=== PATIENT | female | born 1970 | race Caucasian/White ===

== ENCOUNTER 2016-11-18 09:33 | Inpatient (IN) | payer OTHER ==
[~2016-11-18] VITALS: Ht 166.4 cm; Wt 52.2 kg
--- NOTE | 2016-11-18 09:43 | NUR ---
PT WITH HX OF MS C/O H/A X 1 MONTH. STATES SHE HAS BEEN BEDRIDDEN WITH IT X 1 WEEK. PT ALSO STATES SHE STARTED WITH VERTIGO AT 0400 TODAY. PT STATES SHE JUST FINISHED 3 DAYS OF SOLUMEDROL AND IT ALWAYS MAKES HER NAUSEOUS. STATES SHE HAS EYE ISSUES THAT MAKE HER DIZZY TOO
--- NOTE | 2016-11-18 10:06 | NUR ---
RESIDENT AT BEDSIDE FOR EVAL
--- NOTE | 2016-11-18 10:27 | NUR ---
LABS DRAWN AND SENT. PT MEDICAED WITH MECLIZINE PER eMAR.
[2016-11-18 10:37] LABS: ABSOLUTE BASOPHIL COUNT 0 /CUMM (0.0-0.2); ABSOLUTE EOSINOPHIL COUNT 0.1 /CUMM (0.0-0.7); ABSOLUTE GRANULOCYTE CT 7.9 /CUMM (1.4-6.5); ABSOLUTE LYMPH COUNT 0.5 /CUMM (1.2-3.4); ABSOLUTE MONOCYTE COUNT 0.6 /CUMM (0.10-0.60); BASOPHIL % 0.2 % (0.0-2.0); EOSINOPHIL % 0.8 % (0-5); HEMATOCRIT 37.4 % (37-47); MEAN CORPUSCULAR HGB 31.1 PG (27.0-31.0); MEAN CORPUSCULAR HGB CONC 34.4 G/DL (33.0-37.0); MEAN CORPUSCULAR VOLUME 90.4 FL (81.0-99.0); MEAN PLATELET VOLUME 7.6 FL (7.4-10.4); PLATELET COUNT 426 /CUMM (130-400); RBC DISTRIBUTION WIDTH 13.4 % (11.5-14.5); RED BLOOD CELL CT 4.14 /CUMM (4.20-5.40)
--- NOTE | 2016-11-18 10:57 | NUR ---
PT MEDICATED PER EMAR AT THIS TIME.
--- NOTE | 2016-11-18 10:58 | ED AMS/SEIZURE/WEAK/DIZZY ---
History of Present Illness General Chief Complaint: Headache Stated Complaint: DIZZINESS, HEADACHE, X 1WEEK Vital Signs & Intake/Output Vital Signs & Intake/Output Vital Signs Date Time Temp Pulse Resp B/P Pulse O2 O2 Flow FiO2 Ox Delivery Rate 11/18 1331 98.2 57 18 101/60 100 Room Air 11/18 1144 55 18 108/58 100 Room Air 11/18 0942 97.9 62 20 113/79 97 Room Air Allergies Coded Allergies: acetaminophen (From Percocet) (Intermediate, FACIAL SWELLING 11/18/16) oxycodone (From Percocet) (Intermediate, FACIAL SWELLING 11/18/16) prochlorperazine (From Compazine) (Intermediate, LEFT FACIAL/NECK MUSCLES CONTRACTED 11/18/16) dexamethasone (Intermediate, NAUSEA 11/18/16) Triage Note: PT WITH HX OF MS C/O H/A X 1 MONTH. STATES SHE HAS BEEN BEDRIDDEN WITH IT X 1 WEEK. PT ALSO STATES SHE STARTED WITH VERTIGO AT 0400 TODAY. PT STATES SHE JUST FINISHED 3 DAYS OF SOLUMEDROL AND IT ALWAYS MAKES HER NAUSEOUS. STATES SHE HAS EYE ISSUES THAT MAKE HER DIZZY TOO : No Patient currently breastfeeds: No HPI: Pt is a 45 yo lady with a past medical history of Relapsing Remitting MS on fingolimod thera[y, and migraine headaches, presents with complaints of headaches, and vertigo. Pt reports that she has been feeling "sick" since 1 week ago with frontal headaches, and weakness. Associated symptoms include nasuea ( but no vomiting), and dysuria that started today. Pt and was treated with 3 day outpatient course of Solumedrol (11/13-11/15) for exercarbation of her MS. She reports that the Solumedrol did not seem to help her and she continued having frontal headaches. Pt decided to come in to the ED today because at 4am she started experiencing intense vertigo. She states that she has had vertigo before bit not this intense, vertigo is not affected by positional changes. She denies any tinnitus, vision changes or any neurological deficits, speech impairment,LOC , seizure activities, chest pain or palpitation. (EUSEBIO XAVIER,ANKITA) General Source: patient, family, old records Exam Limitations: no limitations Reconcile Medications Butalb/Acetaminophen/Caffeine (Jeedoi-Mfhkfqhw-Cbme 50-325-40) 50 MG-325 MG-40 MG TABLET MIGRAINE (Reported) Triage Nurses Notes Reviewed? yes (VERONIQUE NIXON MD) Past History Travel History Traveled to [place] past 21 day No Medical History Neurological: multiple sclerosis Psychosocial History What is your primary language Scottish Tobacco Use: Never used ETOH Use: occasional use Illicit Drug Use: denies illicit drug use (ANKITA KAPLAN MD) Medical History Any Pertinent Medical History? see below for history Surgical History Surgical History: non-contributory Family History Hx Contributory? No (VERONIQUE NIXON MD) Review of Systems Review of Systems Constitutional: Reports: see HPI. (ANKITA KAPLAN MD) Review of Systems EENTM: Reports: no symptoms. Respiratory: Reports: no symptoms. Cardiovascular: Reports: no symptoms. GI: Reports: no symptoms. Genitourinary: Reports: no symptoms. Musculoskeletal: Reports: no symptoms. Skin: Reports: no symptoms. Neurological/Psychological: Reports: see HPI, headache. Hematologic/Endocrine: Reports: no symptoms. Immunologic/Allergic: Reports: no symptoms. All Other Systems: Reviewed and Negative (VERONIQUE NIXON MD) Physical Exam Physical Exam General Appearance: alert, awake, mild distress Head: atraumatic, normal appearance Eyes: Bilateral: normal appearance (no nystagmus noted), PERRL, EOMI. 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 Skin: intact, normal color Lymphatic: adenopathy Core Measures ACS in differential dx? No CVA/TIA Diagnosis: No Severe Sepsis Present: No Septic Shock Present: No (ANKITA KAPLAN MD) Progress Differential Diagnosis: benign positional vertigo, dehydration, electrolyte imbalance, labrynthitis, Meniere's disease, migraine RUSSELL, multiple sclerosis, vertebrobasilar insuff Plan of Care: Orders Procedure Date/time Status Regular Diet 11/19 D Active MRI-HEAD W & W/O MICHEL 11/19 0600 Active Regular Diet 11/18 D Active Pathway - chart 11/18 1431 Active House Staff 11/18 1431 Active Patient Data 11/18 1431 Active Code Status 11/18 1431 Active Patient Data 11/18 1323 Active OXYGEN SETUP (GEN) 11/18 1309 Active Saline Lock 11/18 1309 Active Admit to inpatient 11/18 1309 Active Vital Signs 11/18 1309 Active Activity/Ambulation 11/18 1309 Active Code Status 11/18 1309 Complete Intake & Output 11/18 1058 Active URINALYSIS 11/18 1015 Complete COMPREHENSIVE METABOLIC PANEL 11/18 1015 Complete CBC WITHOUT DIFFERENTIAL 11/18 1015 Complete VTE Mechanical Prophylaxis 11/18 UNK Active Current Medications Sig/Kasandra Start time Last Medication Dose Stop Time Status Admin Meclizine HCl 25 MG TID PRN 11/18 1445 AC (Antivert) Methylprednisolone 1,000 MG DAILY 11/18 1445 AC (Solu Medrol) 11/19 1200 Dextrose/Water 1,000 ML (D5W 1000) Ondansetron HCl 4 MG TID PRN 11/18 1445 AC (Zofran) Acetaminophen 650 MG Q6P PRN 11/18 1430 UNVr (Tylenol) Ibuprofen 600 MG Q6P PRN 11/18 1430 AC (Motrin) Ketorolac 60 MG ONCE ONE 11/18 1045 CAN Tromethamine 11/18 1046 (Toradol) Laboratory Tests 11/18/16 1055: Urinalysis MANY H, Urine Color YEL, Urine Clarity CLDY H, Urine pH 8.0, Ur Specific [place] 1.015, Urine Protein NEG, Urine Ketones NEG, Urine Nitrite NEG, Urine Bilirubin NEG, Urine Urobilinogen 0.2, Ur Leukocyte Esterase NEG, Ur Microscopic SEDIMENT EXAMINED, Urine RBC RARE, Urine WBC RARE, Ur Epithelial Cells FEW, Urine Hemoglobin NEG, Urine Glucose NEG 11/18/16 1024: Anion Gap 8, Estimated GFR > 60, BUN/Creatinine Ratio 13.8, Glucose 97, Calcium 9.3, Total Bilirubin 0.7, AST 13 L, ALT 29, Alkaline Phosphatase 54, Total Protein 6.5, Albumin 4.1, Globulin 2.4, Albumin/Globulin Ratio 1.7, CBC w Diff NO MAN DIFF REQ, RBC 4.14 L, MCV 90.4, MCH 31.1 H, RDW 13.4, MPV 7.6, Gran % 87.4 H, Lymphocytes % 5.3 L, Monocytes % 6.3, Eosinophils % 0.8, Basophils % 0.2, Absolute Granulocytes 7.9 H, Absolute Lymphocytes 0.5 L, Absolute Monocytes 0.6, Absolute Eosinophils 0.1, Absolute Basophils 0, PUBS MCHC 34.4 Initial ED EKG: none (EUSEBIO XAVIER,ANKITA) Departure Departure Condition: Stable Referrals: CLIFTON SABA MD (PCP/Family) Departure Forms: Customer Survey General Discharge Information (ANKITA KAPLAN MD) Departure Time of Disposition: 1300 Disposition: STILL A PATIENT Clinical Impression Primary Impression: Multiple sclerosis Secondary Impressions: Vertigo Admission Note Spoke With: WESLEY BOX MD Documentation of Exam: Documentation of any treatments & extenuating circumstances including Concerns Regarding Discharge (functional status, medication knowledge or non-compliance, living conditions, etc.) that warrant an admission rather than observation: Failed outpatient high-dose steroid treatment for MS with intractable vertigo headache requiring urology evaluation medication adjustment ensure safety continuing care discharge planning Resident Co-Sign Statement Statement: ED Attending supervision documentation- x I saw and evaluated the patient. I have also reviewed all the pertinent lab results and diagnostic results. I agree with the findings and the plan of care as documented in the Resident's documentation. [] I have reviewed the ED Record and agree with the Resident's documentation. [] Additions or exceptions (if any) to the Resident's note and plan are summarized below: [] (VERONIQUE NIXON MD)
[2016-11-18 11:00] LABS: GRANULOCYTE % 87.4 % (42.2-75.2)
--- NOTE | 2016-11-18 12:00 | NUR ---
PT LAYING QUIETLY ON STRETCHER, LIGHTS DIMMED FOR COMFORT
--- NOTE | 2016-11-18 13:29 | NUR ---
PT MEDICATED WITH 1 MG ATIVAN IV
--- NOTE | 2016-11-18 14:33 | History & Physical ---
FABIO ONTIVEROS 11/18/16 1433: General Information and HPI MD Statement: I have seen and personally examined COY COTTO and documented this H&P. The patient is a 45 year old F who presented with a patient stated chief complaint of []. Source of Information: patient Exam Limitations: no limitations History of Present Illness: This 45-year-old female with history of relapsing remitting MS diagnosed in 1990 on fingolimod and history of migraine headaches came with chief complaint of fatigue, lethargic, headache from couple of days and complaining of severe vertigo for one day. Patient admits that she started having these symptoms and was prescribed high-dose steroids Solu-Medrol 1000 [address] daily [address] Marino for 3 days and last dose was on Thursday. After steroids she became more nauseous fatigued and her vertigo became more pronounced. She also experienced left-sided headache and worse not able to ambulate to severe vertigo and eat anything cause of nausea for last week. She denied chest pain, palpitations, shortness of breath, any urinary or bowel complaints. Her routine pain medications were not helping for her frontal headache and currently she is complaining 6-8 out of 10 headache which is mostly frontal and especially on right side. She is also complaining of double vision very often. Her vertigo is more pronounced when she turns to worse right. She denied any photophobia or neck stiffness. Her balance was off lately but she denied any recent fall. Vital signs at admission temperature 97.9, pulse 62, respiratory rate 20, blood pressure 113/79, oxygen saturation 97 on room air Labs shows WBC count 9.0, hemoglobin 12.9, hematocrit 37.9, platelet 426, sodium 133, potassium 3.8, chloride 98, vision 11 and creatinine 0.8. Allergies/Medications Allergies: Coded Allergies: acetaminophen (From Percocet) (Intermediate, FACIAL SWELLING 11/18/16) oxycodone (From Percocet) (Intermediate, FACIAL SWELLING 11/18/16) prochlorperazine (From Compazine) (Intermediate, LEFT FACIAL/NECK MUSCLES CONTRACTED 11/18/16) dexamethasone (Intermediate, NAUSEA 11/18/16) Home Med list Butalb/Acetaminophen/Caffeine (Lnoyvl-Fjdbplqn-Mgiz 50-325-40) 50 MG-325 MG-40 MG TABLET MIGRAINE (Reported) Carbamazepine 100 MG TAB.CHEW 100 MG PO BED EYE PAIN (Reported) Dextroamphetamine/Amphetamine (Dextroamp-Amphetamin 10 MG Tab) 10 MG TABLET 10 MG PO DAILY ms (Reported) Doxazosin Mesylate (Cardura) 4 MG TABLET 4 MG PO DAILY PRN ms (Reported) Fingolimod HCl (Gilenya) 0.5 MG CAPSULE 0.5 MG PO DAILY MS (Reported) Lorazepam (Ativan) 0.5 MG TABLET 0.5 MG PO DAILY ANXIETY (Reported) Memantine HCl (Namenda) 10 MG TABLET 10 MG PO BID MS (Reported) Ondansetron HCl 4 MG TABLET 4 MG PO BID PRN NAUSEA (Reported) Propranolol HCl 60 MG TABLET 60 MG PO DAILY HEADACHE (Reported) Topiramate 25 MG TABLET 25 MG PO TID HEADACHE (Reported) Zolpidem Tartrate 10 MG TABLET 10 MG PO BED INSOMNIA (Reported) Compliance With Home Meds: FAIR Past History Travel History Traveled to [place] past 21 day No Medical History Neurological: multiple sclerosis Surgical History Surgical History: non-contributory Past Family/Social History Family History Relations & Conditions if any FATHER (Hypertension and renal cancer). MOTHER MOTHER (Hypertension and breast cancer). Psychosocial History ETOH Use: occasional use Illicit Drug Use: denies illicit drug use Functional Ability ADLs Independent: dressing, eating, toileting, bathing. Ambulation: independent IADLs Independent: shopping, housework, finances, food prep, telephone, transportation , medication admin. Review of Systems Review of Systems Constitutional: Reports: malaise, weakness. Denies: chills. EENTM: Reports: double vision. Cardiovascular: Denies: chest pain, edema. Respiratory: Denies: cough, hemoptysis. GI: Reports: nausea. Genitourinary: Reports: discharge. Denies: dysuria. Musculoskeletal: Reports: muscle pain. Exam & Diagnostic Data Last 24 Hrs of Vital Signs/I&O Vital Signs Date Time Temp Pulse Resp B/P Pulse O2 O2 Flow FiO2 Ox Delivery Rate 11/18 1331 98.2 57 18 101/60 100 Room Air 11/18 1144 55 18 108/58 100 Room Air 11/18 0942 97.9 62 20 113/79 97 Room Air Intake & Output 11/18 1600 11/18 0800 11/18 0000 Intake Total Output Total 100 Balance -100 Output, Urine 100 Patient 115 lb Weight Physical Exam General Appearance Alert, Oriented X3, Cooperative, Mild Distress Skin No Rashes HEENT Atraumatic, Mucous Membr. moist/pink Neck Supple Cardiovascular Regular Rate, Normal S1, Normal S2 Lungs Normal Air Movement Abdomen Soft Neurological Normal Speech, Strength at 5/5 X4 Ext, Normal Tone, Sensation Intact, Cranial Nerves 3-12 NL Extremities No Clubbing, No Cyanosis, No Edema Last 24 Hrs of Labs/Darrin: Laboratory Tests 11/18/16 1055: Urinalysis MANY H, Urine Color YEL, Urine Clarity CLDY H, Urine pH 8.0, Ur Specific [place] 1.015, Urine Protein NEG, Urine Ketones NEG, Urine Nitrite NEG, Urine Bilirubin NEG, Urine Urobilinogen 0.2, Ur Leukocyte Esterase NEG, Ur Microscopic SEDIMENT EXAMINED, Urine RBC RARE, Urine WBC RARE, Ur Epithelial Cells FEW, Urine Hemoglobin NEG, Urine Glucose NEG 11/18/16 1024: Anion Gap 8, Estimated GFR > 60, BUN/Creatinine Ratio 13.8, Glucose 97, Calcium 9.3, Total Bilirubin 0.7, AST 13 L, ALT 29, Alkaline Phosphatase 54, Total Protein 6.5, Albumin 4.1, Globulin 2.4, Albumin/Globulin Ratio 1.7, CBC w Diff NO MAN DIFF REQ, RBC 4.14 L, MCV 90.4, MCH 31.1 H, RDW 13.4, MPV 7.6, Gran % 87.4 H, Lymphocytes % 5.3 L, Monocytes % 6.3, Eosinophils % 0.8, Basophils % 0.2, Absolute Granulocytes 7.9 H, Absolute Lymphocytes 0.5 L, Absolute Monocytes 0.6, Absolute Eosinophils 0.1, Absolute Basophils 0, PUBS MCHC 34.4 Assessment/Plan Assessment: Patient is 45-year-old female with history of relapsing remitting MS came with severe vertigo and headache and lethargy most likely due to MS exacerbation but we will rule out other causes including benign positional vertigo and migraine exacerbation. We'll admit patient on general medical floor and will take it for the following problems Problem #1 severe vertigo and headache most likely due to MS exacerbation with underlying migraine headaches. Rule out benign positional vertigo -Vital signs every shift -I spoke with Dr. Rich and he recommended to start patient on high-dose Solu-Medrol 1000 mg IV for now and he will give further recommendations on assessing patient. -We could give Ativan when necessary for anxiety and pain -IV morphine for severe pain -Continue her home medications including single remote, topiramate, amphetamine, propranolol, zolpidem, modafinil. -Pharmacological DVT prophylaxis -Zofran for nausea and vomiting -We will pursue with MRI of the brain and also MRA to rule out any significant vascular stenosisor new MS lesions tomorrow as we don't have any facility for MRI at this moment and already discussed with neurologist. Regular diet as tolerated DVT prophylaxis pharmacological Patient is full code As Ranked By This Provider Problem List: 1. Vertigo 2. Multiple sclerosis Core Measures/Miscellaneous Acute Coronary Syndrome ACS Diagnosis: No Cerebrovascular Accident CVA/TIA Diagnosis: No Congestive Heart Failure CHF Diagnosis: No Venous Thromboembolism VTE Risk Factors: Age > 40 VTE Prophylaxis Ordered Inpt: Pharm- Lovenox No Mech VTE prophylaxis d/t: No contraindications No VTE Pharm Prophylaxis d/t: No contraindications VTE Diagnosis: No VTE Type: NONE VTE Confirmed by (Test): NONE Severe Sepsis Severe Sepsis Present: No Septic Shock Septic Shock Present: No Miscellaneous Documentation Attending Case Discussed With: LINDSEY JONES M.D Primary Care Physician: CLIFTON SABA MD Patient sees these Specialists Neurologist Level of Patient Care: General Medicine LINDSEY JONES MD 11/18/16 1705: Attending MD Review Statement Attending Statement Attending Statement: examined this patient, discuss w/resident/PA/WORKFORCE MANAGER, agreed w/resident/PA/WORKFORCE MANAGER, discussed with family, reviewed EMR data (avail), discussed with nursing, amended to note Attending Assessment/Plan: Patient seen and examined. 45-year-old female with history of relapsing remitting multiple sclerosis and migraine. Presents to the emergency room with complaints of headaches and vertigo has been going on since the weekend. She had initially contacted her neurologist last week with complaints of fatigue and headaches. Symptoms were attributed to a flare of her multiple sclerosis and he made arrangements for intravenous Solu-Medrol injections at home for 3 days. She reports no improvement with therapy. She reports developing nausea which she states happens routinely whenever she received steroid therapy. Her headaches persisted and she developed vertigo at which point she came to the emergency room for evaluation. She denies tinnitus. She reports mild relief of her headaches when she closes her eyes symptoms aggravated by motion of her head. She denies similar symptoms in the past. She reports her migraine has been an issue for a while and she has tried different regimens from her neurologist. On examination today she is alert and oriented 3. She is hemodynamically stable. She has no focal deficits on examination. Power is 5 over 5 in all extremities. She has no nystagmus and cranial nerves are intact. Problems: 1. Migraine. 2. Intractable nausea; probably medication induced 3. History of multiple sclerosis; she has no focal weakness at present. Recommendations: -Admit to the inpatient general medical service. -We will obtain an MRI and MRA of the brain for further workup of her vertigo. Recommend checking orthostatic vitals as well as physical therapy evaluation for Suze's maneuver. Begin patient on meclizine. Administer [id number] and not when necessary -Antiemetic therapy with Zofran. -Recommend Toradol IV for management of her headaches. Continue Topiramate. -Case was discussed with her neurologist who is currently recommending high-dose steroid therapy. Will follow-up with him regarding duration of therapy.
[2016-11-18] MEDS ORDERED: BUTALB-ACETAMI1 EACH PO (14:52)
[2016-11-18] MEDS ORDERED: ONDANSETRON HCL4 MG PO (14:53)
[2016-11-18] MEDS ORDERED: NAMENDA10 M2 PO (14:55)
[2016-11-18] MEDS ORDERED: ZOLPIDEM TARTRA10 M1 PO (14:56)
[2016-11-18] MEDS ORDERED: CARBAMAZEPINE100 M2 PO (14:58)
[2016-11-18] MEDS ORDERED: DEXTROAMP-AMPHE10 MG PO (14:58)
[2016-11-18] MEDS ORDERED: PROPRANOLOL HCL60 M3 PO (15:01)
[2016-11-18] MEDS ORDERED: TOPIRAMATE25 M2 PO (15:02)
[2016-11-18] MEDS ORDERED: GILENYA0.5 M1 PO (15:03)
[2016-11-18] MEDS ORDERED: CARDURA4 M1 PO (15:04)
[2016-11-18] MEDS ORDERED: ATIVAN0.5 M1 PO (15:05)
--- NOTE | 2016-11-18 15:21 | NUR ---
PT MEDICATED DOCUMENTED IN EMAR. OF PT REMAINS AT BEDSIDE
--- NOTE | 2016-11-18 15:26 | NUR ---
ASSUMED CARE OF PT. PT ASKING FOR NAUSEA MEDICATION PRIOR TO STARTING SOLUMEDROL GTT. PT ASKING FOR SOMETHING DIFFERENT THEN ZOFRAN STATES ZOFRAN DOESNT HELP NAUSEA
--- NOTE | 2016-11-18 15:32 | NUR ---
PAGED DR BONILLA AND ASKED FOR NAUSEA MEDICATION FOR PATIENT
--- NOTE | 2016-11-18 16:11 | NUR ---
PT ASSISTED BY USING WHEELCHAIR TO GET UP TO BATHROOM. BACK IN BED, LAYING ON LEFT SIDE, TRYING TO SLEEP. STATES SHE STILL HAS VERTIGO, HEAD ACHE 5 OUT OF 10 PERSISTS AND IS VERY TIRED.
--- NOTE | 2016-11-18 16:42 | NUR ---
PT ASKING FOR SOUP. VITALS TAKEN
--- NOTE | 2016-11-18 17:05 | Admission Certification ---
Admission Certification Certification Statement - As attending physician, I certify that at the time of - admission, based on clinical presentation, severity of - symptoms, need for further diagnostic testing and - therapeutic interventions, and risk of adverse outcomes - without in-hospital treatment, in my clinical assessment, - this patient requires an acute hospital stay for a minimum - of two nights or longer. I have also considered psychsocial - factors such as support system, advanced age, financial - issues, cognitive issues, and failed out-patient treatments, - past re-admission history, safety of patient, and lack of - compliance as applicable. Specific rationale supporting this admission is: She is being admitted to the inpatient medical service for further workup of her vertigo. She is also receiving intravenous steroid therapy for possible flareup of her multiple sclerosis.
--- NOTE | 2016-11-18 17:30 | NUR ---
PT DRANK A BOWL OF BROTH FOR DINNER
--- NOTE | 2016-11-18 18:19 | NUR ---
PT COMPLAINING OF A STABBING TYPE PAIN IN RIGHT UPPER ARM EXTENDING TO ELBOW. STATES THE PAIN IS A 7 OUT OF 10 AND BEGAN SHORTLY AFTER GETTING INJECTION OF TIGAN. DENIES NUMBNESS OR TINGLING IN HAND OR FOREARM. PALPABLE RADIAL PULSE ON RIGHT WRIST. PT PUT ICE PACK ON FOR COMFORT AND DID NOT SAY ANYTHING TO STAFF UNTIL ICE PACKS RAN OUT IN ROOM
--- NOTE | 2016-11-18 20:53 | NUR ---
ORTHOSTATIC BLOOD PRESSURES DONE ON PATIENT. PT CONTINUES WITH LOW GRADE TEMP. GIVEN TYLENOL. PT RESTING QUIETLY. STILL COMPLAINING OF VERTIGO AND HEAD ACHE. STILL COMPLAINING OF RUE DISCOMFORT. ICE PACK CONTINUES TO RUE. PT STATES SHE WAS RECENTLY UP TO RESTROOM. EXPLAINED TO PT PLAN TO MOVE TO A HOSPITAL BED FOR HER COMFORT WHILE STILL IN THE EMERGENCY DEPARTMENT
--- NOTE | 2016-11-18 21:44 | NUR ---
DR VACA NOTIFIED OF PT COMPLAINTS OF STABBING LIKE PAIN IN RUE AFTER GETTING INJECTION. RUE WITHOUT ANY REDNESS OR SWELLING.
--- NOTE | 2016-11-18 22:26 | NUR ---
PT MOVED TO ROOM 21. THIS NURSE CONTINUES TO CARE FOR PT. PT AMBULATING IN ROOM ON HER OWN. ASSISTED TO BATHROOM. NOW BACK IN BED. PT PLACED IN HOSPITAL BED FOR COMFORT
--- NOTE | 2016-11-18 23:14 | NUR ---
PT REFUSED TOPAMAX, STATES IT KEEPS HER AWAKE, REFUSED RITALIN, STATES SHE TAKES IT IN THE AM. ASKED FOR AND GIVEN AMBIEN FOR SLEEP
--- NOTE | 2016-11-19 07:29 | NUR ---
ASSUMED CARE OF PT WHO IS A&O X3, PT OOB TO BR WITHOUT ASSIST. STEADY GAIT NOTED. PT GIVEN BREAKFAST TRAY. PT STATES SLIGHT H/A TO RIGHT SIDE OF FOREHEAD BUT STATES HER DIZZINESS IS BETTER. WAITING FOR ADMISSION BED. WILL CTM
--- NOTE | 2016-11-19 07:34 | PN- Housestaff ---
Subjective Follow-up For: MS Exacerbation Fatigue Nausea Subjective: Patient seen and examined. She is seen lying flat in bed appearing uncomfortable. She appears to be in no acute distress. At her bedside is her who is up-to-date about her medical condition and has no questions at this time. She reports persistence of her headache with mild nausea "since September" for which she is been given multiple medications with minimal relief. Her headache is described as frontal with focus behind her right eye without radiation. She feels tired, fatigued, lethargic and tremulous, with the latter being attributed to the steroids she received from her recent steroid infusion. She denies any new obvious neurological deficits. Additionally she denies any blurred/double vision, slurred speech, fever, chills , neck stiffness, chest pain, palpitations, shortness of breath, cough, nausea, vomiting, diarrhea. No overnight events reported. Review of Systems Constitutional: Reports: see HPI. Objective Last 24 Hrs of Vital Signs/I&O Vital Signs Date Time Temp Pulse Resp B/P Pulse O2 O2 Flow FiO2 Ox Delivery Rate 11/19 1519 97.9 60 18 90/58 96 11/19 1123 98.1 71 16 82/40 99 Room Air 11/19 0613 98.6 65 18 97/57 97 Room Air 11/18 2314 98.9 59 16 92/50 96 Room Air 11/18 2052 99.2 62 16 110/66 97 Room Air 11/18 1903 99.5 56 16 101/56 96 Room Air Intake & Output 11/19 1600 11/19 0800 11/19 0000 Intake Total 779 102 4111 Output Total Balance 267 680 3951 Intake, IV 500 2000 Intake, Oral 240 220 300 Physical Exam General Appearance: Alert, Oriented X3, Cooperative, No Acute Distress Other Physical Findings: General -thin middle-aged woman appearing fatigued and uncomfortable HEENT - NCAT, PERRL, EOMI, anicteric sclera Cardio - S1, S2 w/o murmurs/gallops/rubs Resp - CTA bilaterally w/o wheezing/rhochi/crackles GI - soft, nontender, nondistended, bowel sounds present Neuro - Awake and alert, CN II - XII grossly intact Extremities - no edema, pulses intact Current Medications: Current Medications Sig/Kasandra Start time Last Medication Dose Route Stop Time Status Admin Acetaminophen 0 .STK-MED ONE 11/18 2046 DC PO Acetaminophen 650 MG Q6P PRN 11/18 1430 AC 11/18 PO 2052 Doxazosin Mesylate 4 MG DAILY 11/19 1000 AC 11/19 PO 1015 Enoxaparin Sodium 40 MG DAILY 11/18 1429 AC 11/19 SC 1015 Ibuprofen 600 MG Q6P PRN 11/18 1430 DC PO Ketorolac 0 .STK-MED ONE 11/18 2258 DC Tromethamine .ROUTE Ketorolac 15 MG Q6P PRN 11/18 1915 AC 11/18 Tromethamine IV 2258 Lorazepam 0 .STK-MED ONE 11/19 1001 DC PO Lorazepam 0.5 MG DAILY 11/18 1545 AC 11/19 PO 11/25 1544 1015 Meclizine HCl 0 .STK-MED ONE 11/19 1020 DC PO Meclizine HCl 25 MG TID 11/18 2200 AC 11/19 PO 1024 Meclizine HCl 25 MG TID PRN 11/18 1445 DC PO 11/18 2159 Memantine 10 MG BID 11/18 2200 AC 11/19 PO 1015 Methylphenidate HCl 5 MG BID 11/18 2200 AC 11/19 PO 1039 Methylprednisolone 1,000 MG DAILY 11/18 1445 DC 11/19 Dextrose/Water 1,000 ML IV 11/19 1200 1024 Metoclopramide HCl 10 MG Q6P PRN 11/19 1030 AC IV Metoclopramide HCl 0 .STK-MED ONE 11/19 1021 DC .ROUTE Modafinil 200 MG DAILY 11/20 1000 UNVr PO Morphine Sulfate 2 MG Q4P PRN 11/18 1430 AC 11/19 IV 1238 Omeprazole 20 MG DAILY AC 11/19 0700 AC 11/19 PO 0618 Omeprazole 0 .STK-MED ONE 11/19 0616 DC PO Ondansetron HCl 4 MG TID PRN 11/18 1445 DC PO Patient Medication 1 ED .STK-MED ONE 11/19 1402 DC Teaching ED 11/19 1403 Propranolol HCl 60 MG DAILY 11/20 1000 UNVr PO Topiramate 25 MG BID 11/18 2200 AC 11/19 PO 1015 Zolpidem Tartrate 0 .STK-MED ONE 11/18 2300 DC PO Zolpidem Tartrate 0 .STK-MED ONE 11/18 2257 DC PO Zolpidem Tartrate 10 MG .[BED] 11/18 1545 AC 11/18 PO 2258 Assessment/Plan Assessment: Patient continues to complain of a headache despite multiple medications. She was given IV steroid infusions from -Thursday this past week by her neurologist Dr. Rich for a reported MS exacerbation. She reports worsening of her baseline headache has been present since September since this past Thursday. She is to have an MRI/MRA of the head today to assess for new focal lesions from the multiple sclerosis and to rule out any alternative diagnoses such as vascular pathology. History of migraine/nausea: Patient has a history of migraines for which she has been maintained on Fioricet , propranolol, and Topamax that have offered her relief in the past. She reports a baseline headache that has been present since September. Worsening since this past Thursday. -Topamax 25 mg 3 times a day -Propranolol 60 mg by mouth daily -Meclizine 25 mg by mouth 3 times a day -Tigan 200 mg IM 4 times a day as needed for nausea -Follow-up MRI/MRA head -Neurology consult Relapsing/remitting multiple sclerosis: Patient recently treated with a course of high-dose steroids for an acute MS exacerbation on 11/13/16-11/15/16. Patient of Dr. Rich. -Provigil 200 mg by mouth daily -Adderral 10mg PO Daily converted to Ritalin 5mg PO BID -Memantine 10 mg by mouth twice a day -Ambien 10 mg by mouth daily at bedtime Pain plan: -Acetaminophen 650 mg by mouth every 6 hours as seen for pain 1-3 -Toradol 15 mg IV every 6 hours as needed for pain 4-6 -Morphine 2 mg IV every 4 hours as needed for pain 7-10 Diet-regular diet DVT prophylaxis-Lovenox CODE STATUS-full code Problem List: 1. Multiple sclerosis 2. Vertigo Pain Ratin Pain Location: None Pain Goal: Remain pain free Pain Plan: As noted in plan Tomorrow's Labs & Rationales: CBC BEP
--- NOTE | 2016-11-19 07:51 | NUR ---
PT AT BEDSIDE FOR EVALUATION
--- NOTE | 2016-11-19 08:08 | NUR ---
OF PT AT BEDSIDE
--- NOTE | 2016-11-19 10:30 | NUR ---
PT MEDICATED WITH MORNING MEDS DOCUMENTED
--- NOTE | 2016-11-19 10:31 | NUR ---
BED ASSIGNMENT [id number]
[2016-11-19 11:23] VITALS: BP 82/40
--- NOTE | 2016-11-19 11:29 | PN- Student ---
Subjective Subjective: Source: Patient History of Present Illness: Ms. Peña is a 45 y/o F that has a past medical history of relapse/remitting Multiple Sclerosis. She came to the ER yesterday morning due to a complaint of a constant headache and vertigo. Upon history taking she described the pain as being frontally but mostly localized on the R-side. The patient mentioned to be having a 6-8/10 in the pains scale. She also mentioned that has clau feeling nauseous lately but denies any photophobia or neck stiffness. The patient mentioned that she has been having episodes of double vision as well. She mentioned that she has been treated with Solumedrol. She denies any fever episodes, chills, night sweats, changes in urine color or abnormal bowel movements. Allergies/Medications: Allergies Acetaminophen (Intermediate, FACIAL SWELLING) Oxycodone (Intermediate, FACIAL SWELLING) Prochlorperazine (Intermediate, LEFT FACIAL/NECK MUSCLES CONTRACTED) Dexamethasone (Intermediate, NAUSEA) Past Medical Hx: Travel History Patient denies any trips outside of the [facility]. Medical History Neurological- Multiple Sclerosis Surgical History No surgeries Family History: FATHER HTN & Renal Cancer MOTHER HTN & Breat Cancer Psychosocial History: Where do you live? Home Who Do You Live With? Services at Home: None Primary Language: Romanian EtOH Use: Occasional Illicit Drug Use: Denies use Functional Ability: ADLs Independent: dressing, eating, toileting, bathing. Ambulation: independent IADLs Independent: shopping, housework, finances, food prep, telephone, transportation , medication admin. Review of Systems: General: The patient is a 45 y/o with no signs of respiratory distress, afebrile and denies any chills or night sweats. The patient seems uncomfortable and is positionally compensating towards generalized pain. HEENT: NONE Cardiovascular: No palpitations Respiratory: No shortness of breath GI: NONE Objective Objective: Current Medications Sig/Kasandra Start time Last Medication Dose Route Stop Time Status Admin Acetaminophen 0 .STK-MED ONE 11/18 2045 DC PO Acetaminophen 650 MG Q6P PRN 11/18 1430 AC 11/18 PO 2051 Doxazosin Mesylate 4 MG DAILY 11/19 1000 AC 11/19 PO 1015 Enoxaparin Sodium 40 MG DAILY 11/18 1429 AC 11/19 SC 1015 Ibuprofen 600 MG Q6P PRN 11/18 1430 DC PO Ketorolac 0 .STK-MED ONE 11/18 2258 DC Tromethamine .ROUTE Ketorolac 15 MG Q6P PRN 11/18 1915 AC 11/18 Tromethamine IV 2258 Lorazepam 0 .STK-MED ONE 11/19 1001 DC PO Lorazepam 0.5 MG DAILY 11/18 1545 AC 11/19 PO 11/25 1544 1015 Meclizine HCl 0 .STK-MED ONE 11/19 1020 DC PO Meclizine HCl 25 MG TID 11/18 2200 AC 11/19 PO 1024 Meclizine HCl 25 MG TID PRN 11/18 1445 DC PO 11/18 2159 Memantine 10 MG BID 11/18 2200 AC 11/19 PO 1015 Methylphenidate HCl 5 MG BID 11/18 220 AC 11/19 PO 1039 Methylprednisolone 1,000 MG DAILY 11/18 1445 DC 11/19 Dextrose/Water 1,000 ML IV 11/19 1200 1024 Metoclopramide HCl 10 MG Q6P PRN 11/19 1030 AC IV Metoclopramide HCl 0 .STK-MED ONE 11/19 1021 DC .ROUTE Modafinil 200 MG DAILY 11/20 1000 UNVr PO Morphine Sulfate 2 MG Q4P PRN 11/18 1430 AC 11/19 IV 1238 Omeprazole 20 MG DAILY AC 11/19 0700 AC 11/19 PO 0618 Omeprazole 0 .STK-MED ONE 11/19 0616 DC PO Ondansetron HCl 4 MG TID PRN 11/18 1445 DC PO Patient Medication 1 ED .STK-MED ONE 11/19 1402 DC Teaching ED 11/19 1403 Propranolol HCl 60 MG DAILY 11/20 1000 UNVr PO Topiramate 25 MG BID 11/18 2200 AC 11/19 PO 1015 Zolpidem Tartrate 0 .STK-MED ONE 11/18 2300 DC PO Zolpidem Tartrate 0 .STK-MED ONE 11/18 2258 DC PO Zolpidem Tartrate 10 MG .[BED] 11/18 1545 AC 11/18 PO 2258 Vital Signs Date Time Temp Pulse Resp B/P Pulse O2 O2 Flow FiO2 Ox Delivery Rate 11/19 1519 97.9 60 18 90/58 96 11/19 1123 98.1 71 16 82/40 99 Room Air 11/19 0613 98.6 65 18 97/57 97 Room Air 11/18 2314 98.9 59 16 92/50 96 Room Air 11/18 2052 99.2 62 16 110/66 97 Room Air 11/18 1903 99.5 56 16 101/56 96 Room Air Intake & Output 11/19 1600 11/19 0800 11/19 0000 Intake Total 405 007 1767 Output Total Balance 383 363 6687 Intake, IV 500 2000 Intake, Oral 240 220 300 Physical Examination: General: Ms. Peña is a 45 y/o F without any signs of distress, alert and oriented X3. HEENT: PERRLA Mouth: No signs of central cyanosis. Lungs: Clear to ascultation. CV: S1, S2 were heard; No murmurs GI: No pain upon light palpation. MSK: Diffuse body-aches (probably seconday to corticosteroids). Neurological: Normal speech. Results Results: Laboratory Tests 11/18/16 1055: Urinalysis MANY H, Urine Color YEL, Urine Clarity CLDY H, Urine pH 8.0, Ur Specific [place] 1.015, Urine Protein NEG, Urine Ketones NEG, Urine Nitrite NEG, Urine Bilirubin NEG, Urine Urobilinogen 0.2, Ur Leukocyte Esterase NEG, Ur Microscopic SEDIMENT EXAMINED, Urine RBC RARE, Urine WBC RARE, Ur Epithelial Cells FEW, Urine Hemoglobin NEG, Urine Glucose NEG 11/18/16 1024: Anion Gap 8, Estimated GFR > 60, BUN/Creatinine Ratio 13.8, Glucose 97, Calcium 9.3, Total Bilirubin 0.7, AST 13 L, ALT 29, Alkaline Phosphatase 54, Total Protein 6.5, Albumin 4.1, Globulin 2.4, Albumin/Globulin Ratio 1.7, CBC w Diff NO MAN DIFF REQ, RBC 4.14 L, MCV 90.4, MCH 31.1 H, RDW 13.4, MPV 7.6, Gran % 87.4 H, Lymphocytes % 5.3 L, Monocytes % 6.3, Eosinophils % 0.8, Basophils % 0.2, Absolute Granulocytes 7.9 H, Absolute Lymphocytes 0.5 L, Absolute Monocytes 0.6, Absolute Eosinophils 0.1, Absolute Basophils 0, PUBS MCHC 34.4 Assessment/Plan Assessment: Ms. Peña is a 45 y/o F that came in due to headache and vertigo. The patient has frontally located band-like headache that is more painful on the R-side. The patient has associated vertigo and nausea but there is no photophobia or phonophobia associated. Overall the patient seems in pain and most of the bosy pains could possibly be associated to her current Steroid Tx. Plan: Problem List and Plan: 1) Headache & Vertigo Start the patient on Topiramate (25mg PO TID) to control the headache and PPx for migraines. Administer also Propranolol (40mg PO qDay). 2) MS remission Continue the current regimen that the patient has for MS. 3) Nausea Administer Ondansetron (40mg PO PRN). 4) DVT Prophylaxis Start the patient on Lovenox (40mg SC qDay).
[2016-11-19 15:19] VITALS: BP 90/58
--- NOTE | 2016-11-19 15:40 | PN- Att Addend ---
Attending MD Review Statement Attending Statement Attending MD Statement: examined this patient, discuss w/resident/PA/GOVERNMENT OPERATIONS CONSULTANT, agreed w/resident/PA/GOVERNMENT OPERATIONS CONSULTANT, discussed with family, reviewed EMR data (avail), discussed w/ case mgmt Attending Assessment/Plan: 45-year-old female with history of relapsing remitting MS diagnosed in 1990 on fingolimod and history of migraine headaches came with chief complaint of fatigue, lethargic, headache from couple of days and complaining of severe vertigo for one day. Patient was prescribed high-dose steroids Solu-Medrol 1000 mg IV daily by Dr. Marino for 3 days and last dose was on Thursday. Pt has no weakness from MS but her main neurological deficit are vision changes and fatigue. Pt was started on iv solumedrol yesterday after admission. Patient also has history of migraine headaches and currently her headache is different from her migraine headache and it is in the frontal area. Went over patient's medications that she is currently on, patient was started on Topamax 25 mg 3 times a day about a week ago. Will discuss with neurology and see if they're okay with increasing the dose to 50 mg 3 times a day. Patient also is taking Fioricet but says it does not help much. Patient is planned for getting an MRI and MRA of the brain today, will follow-up on the results and discuss those with neurologist. Reviewed all her medications and discussed the care plan with the patient.
[2016-11-19] MEDS ORDERED: PROVIGIL100 M1 PO (16:41)
--- NOTE | 2016-11-19 17:24 | MRI REPORT ---
EXAMINATION: MR BRAIN WITH AND WITHOUT CONTRAST MR ANGIOGRAPHY OF THE HEAD WITHOUT CONTRAST CLINICAL INFORMATION: Migraine. MS exacerbation. Assess for vascular pathology. COMPARISON: There are no prior studies available for comparison at time of dictation. TECHNIQUE: Multiplanar, multisequence imaging of the brain was obtained without and with intravenous administration of contrast. 3-D [id number] MR angiography was performed. Multiple 3-D reformatted images were processed on the technologist workstation. Intravenous contrast: Gadavist 5 mL. FINDINGS: MRI BRAIN: No diffusion abnormalities are identified to suggest an acute or subacute infarct. The ventricles are normal in size. No mass effect or midline shift is seen. There are multiple scattered areas of increased T2 and FLAIR signal in the periventricular white matter predominantly, with some foci in the centra semiovale and subcortical white matter. Some of the foci demonstrate intrinsically low T1 signal. The corpus callosum is slightly thinned. The distribution of these foci is consistent with the patient's history of multiple sclerosis. None of the foci demonstrates restricted diffusion or abnormal enhancement. No extra-axial fluid collections are seen. The brainstem and cerebellum are normal. On postcontrast imaging, there is no abnormal parenchymal or leptomeningeal enhancement. No pathologic magnetic susceptibility artifact is identified on the gradient refocused acquisition. Marrow signal and midline structures are normal. The cerebellar tonsillar tips lie 3 mm below the level of the foramen magnum, which is within normal limits for the patient's age. The contour of the tonsils is normal. The major intracranial flow voids at the level of the [place] of [place] are preserved. The dural venous sinus flow voids are maintained. The mastoid air cells and paranasal sinuses are well aerated. MRA HEAD: In the anterior circulation, the distal internal carotid arteries within the neck appear normal. The intracranial internal carotid arteries and their bifurcations appear normal. The middle and anterior cerebral arteries bilaterally demonstrate normal caliber with no evidence of focal stenosis, aneurysm or vascular malformation. The anterior communicating artery is normal. In the posterior circulation, the left vertebral artery is dominant. The vertebral arteries intradurally have normal caliber. The basilar artery appears normal. The posterior cerebral arteries have normal caliber; both posterior cerebral arteries arise primarily off the anterior circulation, a normal variant. IMPRESSION: 1. There are no acute bleeds or infarcts. There are no masses or areas of abnormal enhancement. 2. There are multiple areas of increased T2 and FLAIR signal some with low T1 signal as described above, in a distribution consistent with the patient's history of multiple sclerosis. There are no active foci of demyelination. 3. MR angiography of the intracranial circulation does not demonstrate focal stenosis, aneurysm or vascular malformation.
[2016-11-19 23:13] VITALS: BP 98/60
[2016-11-20 05:51] VITALS: BP 90/52
--- NOTE | 2016-11-20 06:53 | PN- Student ---
NATHALIA ZHAO 11/20/16 0652: Subjective Subjective: Source: Patient Ms. Peña is a 45 y/o F that has a past medical history of relapse/remitting Multiple Sclerosis. She came to the ER yesterday morning due to a complaint of a constant headache and vertigo. Upon history taking she described the pain as being frontally but mostly localized on the R-side. Today I visitied the patient and she was sleeping with some ice packs on her head. She stated that sleeped properly yesterday night and that didn't had any episodes of nausea or vomiting, however the headache still present on the frontal area localized mostly to the R-side, but she feels more alleviated when compared to yesterday's presentation. The patient denied any fever, chills or night sweats, photophobia or phonobia. The patient confirmed that she is usually hypotensive and that Systolic BP's >100 or around that range are "normal in her and it runs in the family". Review of Systems: General: The patient is a 45 y/o with no signs of respiratory distress, afebrile and denies any chills or night sweats. The patient seems uncomfortable and is positionally compensating towards generalized pain. HEENT: NONE Cardiovascular: No palpitations Respiratory: No shortness of breath GI: NONE Objective Objective: Current Medications Sig/Kasandra Start time Last Medication Dose Route Stop Time Status Admin Acetaminophen 650 MG Q6P PRN 11/18 1430 AC 11/18 PO 2051 Doxazosin Mesylate 4 MG DAILY 11/19 1000 11/20 PO 0803 Enoxaparin Sodium 40 MG DAILY 11/18 1429 11/20 SC 0806 Ketorolac 15 MG Q6P PRN 11/18 1915 11/20 Tromethamine IV 0759 Lorazepam 0 .STK-MED ONE 11/19 1001 DC PO Lorazepam 0.5 MG DAILY 11/18 1545 11/20 PO 11/25 1544 0802 Meclizine HCl 0 .STK-MED ONE 11/19 1020 DC PO Meclizine HCl 25 MG TID 11/18 PO 0802 Memantine 10 MG BID 11/18 PO 0803 Methylphenidate HCl 5 MG BID 11/18 PO 0802 Methylprednisolone 1,000 MG DAILY 11/18 1445 DC 11/19 Dextrose/Water 1,000 ML IV 11/19 1200 1024 Metoclopramide HCl 10 MG Q6P PRN 11/19 1030 DC IV Metoclopramide HCl 0 .STK-MED ONE 11/19 1021 DC .ROUTE Modafinil 200 MG DAILY 11/20 1000 AC 11/20 PO 0837 Morphine Sulfate 2 MG Q4P PRN 11/18 1430 AC 11/19 IV 2143 Omeprazole 20 MG DAILY AC 11/19 0700 AC 11/20 PO 0438 Ondansetron HCl 4 MG TID PRN 11/18 1445 DC PO Patient Medication 1 ED .STK-MED ONE 11/19 1402 DC Teaching ED 11/19 1403 Propranolol HCl 60 MG DAILY 11/20 1000 AC PO Topiramate 25 MG TID 11/19 2200 AC 11/20 PO 0803 Topiramate 25 MG BID 11/18 2200 DC 11/19 PO 1015 Trimethobenzamide HCl 200 MG 4 TIMES/DAY PRN 11/19 1700 AC 11/20 IM 0816 Zolpidem Tartrate 10 MG .[BED] 11/18 1545 AC 11/19 PO 2142 Vital Signs Date Time Temp Pulse Resp B/P Pulse O2 O2 Flow FiO2 Ox Delivery Rate 11/20 0829 64 90/52 11/20 0551 98.3 64 20 9052 96 Room Air 11/19 2313 98.7 67 18 98/60 99 Room Air 11/19 1519 97.9 60 18 90/58 96 11/19 1123 98.1 71 16 82/40 99 Room Air Intake & Output 11/20 1600 11/20 0800 11/20 0000 Intake Total 700 Output Total Balance 700 Intake, Oral 700 Physical Examination: General: Ms. Peña is a 45 y/o F without any signs of distress, alert and oriented X3. HEENT: PERRLA Mouth: No signs of central cyanosis. Lungs: Clear to ascultation. CV: S1, S2 were heard; No murmurs GI: No pain upon light palpation. MSK: Diffuse body-aches (probably seconday to corticosteroids). Neurological: Normal speech. Results Results: Laboratory Tests 11/20/16 0744: Sodium Pending, Potassium Pending, Chloride Pending, Carbon Dioxide Pending, Anion Gap Pending, BUN Pending, Creatinine Pending, BUN/Creatinine Ratio Pending , CBC w Diff Pending, WBC Pending, RBC Pending, Hgb Pending, Hct Pending, MCV Pending, MCH Pending, RDW Pending, Plt Count Pending, MPV Pending, PUBS MCHC Pending 11/18/16 1055: Urinalysis MANY H, Urine Color YEL, Urine Clarity CLDY H, Urine pH 8.0, Ur Specific [place] 1.015, Urine Protein NEG, Urine Ketones NEG, Urine Nitrite NEG, Urine Bilirubin NEG, Urine Urobilinogen 0.2, Ur Leukocyte Esterase NEG, Ur Microscopic SEDIMENT EXAMINED, Urine RBC RARE, Urine WBC RARE, Ur Epithelial Cells FEW, Urine Hemoglobin NEG, Urine Glucose NEG 11/18/16 1024: Anion Gap 8, Estimated GFR > 60, BUN/Creatinine Ratio 13.8, Glucose 97, Calcium 9.3, Total Bilirubin 0.7, AST 13 L, ALT 29, Alkaline Phosphatase 54, Total Protein 6.5, Albumin 4.1, Globulin 2.4, Albumin/Globulin Ratio 1.7, CBC w Diff NO MAN DIFF REQ, RBC 4.14 L, MCV 90.4, MCH 31.1 H, RDW 13.4, MPV 7.6, Gran % 87.4 H, Lymphocytes % 5.3 L, Monocytes % 6.3, Eosinophils % 0.8, Basophils % 0.2, Absolute Granulocytes 7.9 H, Absolute Lymphocytes 0.5 L, Absolute Monocytes 0.6, Absolute Eosinophils 0.1, Absolute Basophils 0, PUBS MCHC 34.4 Assessment/Plan Assessment: Ms. Peña is a 45 y/o F that came in due to headache and vertigo. The patient has frontally located band-like headache that is more painful on the R-side. The patient has associated vertigo and nausea but there is no photophobia or phonophobia associated. Overall the patient seems in pain and most of the bosy pains could possibly be associated to her current Steroid Tx. Plan: Problem List and Plan: 1) Headache & Vertigo Start the patient on Topiramate (25mg PO TID) to control the headache and PPx for migraines. Administer also Propranolol (40mg PO qDay). 2) MS remission Continue the current regimen that the patient has for MS. 3) Nausea Administer Ondansetron (40mg PO PRN). 4) DVT Prophylaxis Start the patient on Lovenox (40mg SC qDay).
--- NOTE | 2016-11-20 07:13 | PN- Housestaff ---
CECILIA XAVIER,TERSEA 11/20/16 0712: Subjective Follow-up For: MS Exacerbation Fatigue Nausea Subjective: Patient seen and examined. She is seen lying flat in bed resting comfortably. She appears to be in no acute distress. She admits that her headache is not changed from yesterday. She denies any new complaints or any obvious new focal neurologic deficits. Additionally she denies any fever, chills, chest pain, palpitations, shortness of breath, nausea, vomiting, diarrhea. No overnight events reported. Review of Systems Constitutional: Reports: see HPI. Objective Last 24 Hrs of Vital Signs/I&O Vital Signs Date Time Temp Pulse Resp B/P Pulse O2 O2 Flow FiO2 Ox Delivery Rate 11/20 0829 64 90/52 11/20 0551 98.3 64 20 52 96 Room Air 11/19 2313 98.7 67 18 98/60 99 Room Air 11/19 1519 97.9 60 18 90/58 96 Intake & Output 11/20 1600 11/20 0800 11/20 0000 Intake Total 50 700 Output Total Balance 50 700 Intake, IV 0 Intake, Oral 50 700 Number 0 Bowel Movements Physical Exam General Appearance: Alert, Oriented X3, Cooperative, No Acute Distress Other Physical Findings: General -well-developed, thin uncomfortable appearing woman in no acute distress HEENT - NCAT, PERRL, EOMI, anicteric sclera Cardio - S1, S2 w/o murmurs/gallops/rubs Resp - CTA bilaterally w/o wheezing/rhochi/crackles GI - soft, nontender, nondistended, bowel sounds present Neuro - Awake and alert, CN II - XII grossly intact Extremities - no edema, pulses intact Current Medications: Current Medications Sig/Kasandra Start time Last Medication Dose Route Stop Time Status Admin Acetaminophen 650 MG Q6P PRN 11/18 1430 11/18 PO 2051 Doxazosin Mesylate 4 MG DAILY 11/19 1000 11/20 PO 0803 Enoxaparin Sodium 40 MG DAILY 11/18 1429 11/20 SC 0806 Ketorolac 15 MG Q6P PRN 11/18 1915 11/20 Tromethamine IV 0759 Lorazepam 0.5 MG DAILY 11/18 1545 11/20 PO 11/25 1544 0802 Meclizine HCl 25 MG TID 11/18 2200 11/20 PO 0802 Memantine 10 MG BID 11/18 2200 AC 11/20 PO 0803 Methylphenidate HCl 5 MG BID 11/18 2200 AC 11/20 PO 0802 Metoclopramide HCl 10 MG Q6P PRN 11/19 1030 DC IV Modafinil 200 MG DAILY 11/20 1000 AC 11/20 PO 0837 Morphine Sulfate 2 MG Q4P PRN 11/18 1430 AC 11/19 IV 2143 Omeprazole 20 MG DAILY AC 11/19 0700 AC 11/20 PO 0438 Patient Medication 1 ED .STK-MED ONE 11/19 1402 DC Teaching ED 11/19 1403 Propranolol HCl 60 MG DAILY 11/20 1000 AC PO Topiramate 50 MG TID 11/20 1600 UNVr PO Topiramate 25 MG TID 11/19 2200 DC 11/20 PO 0803 Topiramate 25 MG BID 11/18 2200 DC 11/19 PO 1015 Trimethobenzamide HCl 200 MG 4 TIMES/DAY PRN 11/19 1700 AC 11/20 IM 0816 Zolpidem Tartrate 10 MG .[BED] 11/18 1545 AC 11/19 PO 2142 Last 24 Hrs of Lab/Darrin Results Last 24 Hrs of Labs/Mics: Laboratory Tests 11/20/16 0744: Anion Gap 8, Estimated GFR > 60, BUN/Creatinine Ratio 18.6, CBC w Diff NO MAN DIFF REQ, RBC 3.37 L, MCV 91.3, MCH 31.3 H, RDW 13.7, MPV 8.2, Gran % 89.1 H, Lymphocytes % 3.4 L, Monocytes % 7.4, Eosinophils % 0.1, Basophils % 0 L, Absolute Granulocytes 11.2 H, Absolute Lymphocytes 0.4 L, Absolute Monocytes 0.9 H, Absolute Eosinophils 0, Absolute Basophils 0, PUBS MCHC 34.3 Assessment/Plan Assessment: Patient continues to complain of headache despite taking NSAIDs, Topamax, propranolol, and narcotic medications. Case was discussed with neurologist of record Dr. Rich and it was decided to titrate the Topamax up to 50 mg 3 times a day and retain the patient in the hospital for observation for 1 more evening. She has completed a 5 day total course of high-dose intravenous steroids. She is an anticipated discharge for tomorrow to home. History of migraine/nausea: Patient has a history of migraines for which she has been maintained on Fioricet , propranolol, and Topamax that have offered her relief in the past. She reports a baseline headache that has been present since September. Worsening since this past Thursday. -Topamax increased to 50 mg 3 times a day -Propranolol 60 mg by mouth daily -Meclizine 25 mg by mouth 3 times a day -Tigan 200 mg IM 4 times a day as needed for nausea -Follow-up MRI/MRA head -Neurology consult Relapsing/remitting multiple sclerosis: Patient recently treated with a course of high-dose steroids for an acute MS exacerbation on 11/13/16-11/15/16. Patient of Dr. Rich. -Provigil 200 mg by mouth daily -Adderral 10mg PO Daily converted to Ritalin 5mg PO BID -Memantine 10 mg by mouth twice a day -Ambien 10 mg by mouth daily at bedtime Pain plan: -Acetaminophen 650 mg by mouth every 6 hours as seen for pain 1-3 -Toradol 15 mg IV every 6 hours as needed for pain 4-6 -Morphine 2 mg IV every 4 hours as needed for pain 7-10 Diet-regular diet DVT prophylaxis-Lovenox CODE STATUS-full code Problem List: 1. Multiple sclerosis Pain Ratin Pain Location: Head Pain Goal: Pain 7 or less Pain Plan: As noted in plan Tomorrow's Labs & Rationales: None BECKY SINGH MD 11/20/16 1552: Attending MD Review Statement Attending Statement Attending MD Statement: examined this patient, discuss w/resident/PA/CLOSING MANAGER, agreed w/resident/PA/CLOSING MANAGER, reviewed EMR data (avail) Attending Assessment/Plan: Headache 6/10 and mildly improved. Vertigo improved when head is tilted towards the left. Will cotninue current management, increase Topamax dose, continue Toradol, give trial of Imitrex, follow neurology recommendations. Discharge tomorrow if clinically improved. MRI/MRA head is negative.
[2016-11-20 09:27] LABS: ABSOLUTE BASOPHIL COUNT 0 /CUMM (0.0-0.2); ABSOLUTE EOSINOPHIL COUNT 0 /CUMM (0.0-0.7); ABSOLUTE LYMPH COUNT 0.4 /CUMM (1.2-3.4); ABSOLUTE MONOCYTE COUNT 0.9 /CUMM (0.10-0.60); BASOPHIL % 0 % (0.0-2.0); EOSINOPHIL % 0.1 % (0-5); MEAN CORPUSCULAR HGB 31.3 PG (27.0-31.0); MEAN PLATELET VOLUME 8.2 FL (7.4-10.4); RBC DISTRIBUTION WIDTH 13.7 % (11.5-14.5)
[2016-11-20 09:31] LABS: ABSOLUTE GRANULOCYTE CT 11.2 /CUMM (1.4-6.5); MEAN CORPUSCULAR HGB CONC 34.3 G/DL (33.0-37.0); MEAN CORPUSCULAR VOLUME 91.3 FL (81.0-99.0); PLATELET COUNT 298 /CUMM (130-400); RED BLOOD CELL CT 3.37 /CUMM (4.20-5.40); WHITE BLOOD CELL COUNT 12.6 /CUMM (4.8-10.8)
[2016-11-20 09:35] LABS: HEMATOCRIT 30.8 % (37-47)
[2016-11-20 09:57] LABS: GRANULOCYTE % 89.1 % (42.2-75.2)
[2016-11-20 13:46] VITALS: BP 99/60
--- NOTE | 2016-11-20 16:08 | Discharge Summary ---
Visit Information Visit Dates Admission Date: 11/18/16 Discharge Date: 11/21/16 Hospital Course Course Attending Physician: Dulce Conde MD Primary Care Physician: CLIFTON SABA MD Consulting Request: Consulting Specialty: Neurology Hospital Course: 45 year old woman with a past medical history of relapsing/remitting multiple sclerosis and migraines seen for evaluation of dizzyness/weakness/lethargic/ fatigue, recent worsening headache and recent multiple sclerosis flare. She received high dose steroids from 11/13/16-11/15/16 for a possible MS flair due to her persistent symptoms. She can to the [place] ED for further evaluation on for further evaluation. Possible Multiple Sclerosis Exacerbation/worsening chronic migraine: History relapsing/remitting multiple sclerosis. Patient of Dr. Rich. She was recently started on Gileniya for treatment of her multiple sclerosis which was held on admission. Patient received total 5 day course of high-dose intravenous steroids for a possible multiple sclerosis exacerbation. MRI/MRA of the head was obtained to rule out alternative diagnoses of worsening migraine/ occult neurologic disease. This imaging study ruled out any vascular pathology and did not demonstrate any new/worsening neurologic disease and commented on old findings. She was continued on her regimen of propranolol/Topamax and given intravenous morphine/Toradol for pain control. Her symptoms of nausea were controlled with meclizine and Tigan as Zofran did not offer her adequate relief. Topamax was titrated up to 50 mg 3 times a day with addition of Imitrex as needed which reportedly reduced her migraine pain down to 3/10. Given her recent medication change of Gileniya in the setting of an acute multiple sclerosis exacerbation it was determined that patient would possibly benefit from a spinal tap to rule out alternative diagnoses such as occult cryptococcal meningitis. Findings of the study will need to be evaluated as an outpatient. Patient was discharged to home with instruction to continue on her home medication regimen with the exception of holding Gileniya until restarted by her neurologist Dr. Rich and to continue on the increased dose of Topamax and use Imitrex as needed. Allergies: Coded Allergies: acetaminophen (From Percocet) (Intermediate, FACIAL SWELLING 11/18/16) oxycodone (From Percocet) (Intermediate, FACIAL SWELLING 11/18/16) prochlorperazine (From Compazine) (Intermediate, LEFT FACIAL/NECK MUSCLES CONTRACTED 11/18/16) dexamethasone (Intermediate, NAUSEA 11/18/16) Significant Procedures: SERVICE DATE: 11/19/16- EXAM TYPE: MRI - MRA-HEAD; MRI-HEAD W & W/O MICHEL IMPRESSION: 1. There are no acute bleeds or infarcts. There are no masses or areas of abnormal enhancement. 2. There are multiple areas of increased T2 and FLAIR signal some with low T1 signal as described above, in a distribution consistent with the patient's history of multiple sclerosis. There are no active foci of demyelination. 3. MR angiography of the intracranial circulation does not demonstrate focal stenosis, aneurysm or vascular malformation. Lumbar puncture: -CSF WBC: 0 -CSF RBC: 0 -CSF glucose: 51 -CSF total protein: 45 -CSF oligoclonal bands: Pending -Cryptococcal antigen: Negative -Lyme disease PCR: Pending -CSF cytology: Pending Disposition Summary Disposition Principal Diagnosis: Migraine Additional Diagnosis: History of multiple sclerosis Discharge Disposition: home or self care Discharge Instructions General Discharge Information Code Status: Full Code Patient's Diet: Regular diet Patient's Activity: Return to full activity as tolerated Follow-Up Instructions/Appts: Follow-up with your neurologist after discharge for further evaluation of your multiple sclerosis, migraine headaches, and vertigo. Take Imitrex,Topamax, and meclizine as directed. Medications at Discharge Discharge Medications: Stop taking the following medications: Topiramate (Topiramate) 25 MG TABLET ORAL THREE TIMES DAILY Qty = 90 Continue taking these medications: Butalb/Acetaminophen/Caffeine (Wgdrvo-Iqjmbyse-Ghzs 50-325-40) 50 MG-325 MG-40 MG TABLET Milligram ORAL EVERY 8 HOURS Qty = 60 Comments: NOT GIVEN IN HOSP Ondansetron HCl (Ondansetron HCl) 4 MG TABLET 4 Milligram ORAL TWICE DAILY as needed for NAUSEA Qty = 9 Comments: NOT GIVEN IN HOSP Memantine HCl (Namenda) 10 MG TABLET 10 Milligram ORAL TWICE DAILY Qty = 180 Comments: Last Taken:11/21/16 Time:10 AM Zolpidem Tartrate (Zolpidem Tartrate) 10 MG TABLET 10 Milligram ORAL BED Qty = 30 Comments: Last Taken:11/20/16 Time:10 PM Dextroamphetamine/Amphetamine (Dextroamp-Amphetamin 10 MG Tab) 10 MG TABLET 10 Milligram ORAL DAILY Qty = 30 Comments: NOT GIVEN IN HOSPITAL Propranolol HCl (Propranolol HCl) 60 MG TABLET 60 Milligram ORAL DAILY Qty = 90 Comments: HELD 11/21/16 DUE TO LOW B/P Fingolimod HCl (Gilenya) 0.5 MG CAPSULE 0.5 Milligram ORAL DAILY Qty = 30 Comments: NOT GIVEN IN HOSPITAL Doxazosin Mesylate (Cardura) 4 MG TABLET 4 Milligram ORAL DAILY as needed for ms Comments: Last Taken:11/20/16 Time:8 AM Lorazepam (Ativan) 0.5 MG TABLET 0.5 Milligram ORAL DAILY Comments: Last Taken:11/20/16 Time:3:30 PM Modafinil (Provigil) 100 MG TABLET 2 Tablet ORAL DAILY Comments: Last Taken:11/21/16 Time:10 AM Start taking the following new medications: Sumatriptan Succinate (Sumatriptan Succinate) 25 MG TABLET 25 Milligram ORAL DAILY NEEDED as needed for MIGRAINE Qty = 9 No Refills Instructions: TAKE ONE TABLET BY MOUTH AT ONSET OF HEADACHE Comments: Last Taken:11/21/16 Time:5 PM Topiramate (Topamax) 50 MG TABLET 1 Tablet ORAL THREE TIMES DAILY Qty = 90 No Refills Comments: Last Taken:11/21/16 Time:3:45 PM Meclizine HCl (Meclizine HCl) 25 MG TABLET 1 Tablet ORAL THREE TIMES DAILY Qty = 90 No Refills Comments: Last Taken:11/21/16 Time:3:45 PM Copies To: CHCUK XAVIER,MATTHEW Pro; WANDY XAVIER,CLIFTON
--- NOTE | 2016-11-20 16:13 | Patient Discharge Instructions ---
Discharge Instructions General Discharge Information Special Instructions: Follow-up with your neurologist after discharge for further evaluation of your multiple sclerosis, migraine headaches, and vertigo. Take Imitrex,Topamax, and meclizine as directed. Acute Coronary Syndrome Inclusion Criteria At DC or during hospital stay patient has or had the following: ACS DIAGNOSIS No Discharge Core Measures Meds if any: Prescribed or Continued at Discharge Meds if any: NOT Prescribed or Continued at Discharge Congestive Heart Failure Inclusion Criteria At DC or during hospital stay patient has or had the following: CHF DIAGNOSIS No Discharge Core Measures Meds if any: Prescribed or Continued at Discharge Meds if any: NOT Prescribed or Continued at Discharge Cerebrovascular accident Inclusion Criteria At DC or during hospital stay patient has or had the following: CVA/TIA Diagnosis No Discharge Core Measures Meds if any: Prescribed or Continued at Discharge Meds if any: NOT Prescribed or Continued at Discharge Venous thromboembolism Inclusion Criteria VTE Diagnosis No VTE Type NONE VTE Confirmed by (Test) NONE Discharge Core Measures - Per Current guidelines, there needs to be overlap - treatment for the first 5 days of Warfarin therapy. - If discharged on Warfarin prior to 5 days of - overlap therapy, the patient will need to be - assessed for post discharge needs including - *Post discharge parental anticoagulation - *Warfarin and/or parental anticoagulation education - *Follow up date to check INR post discharge At least 5 days overlap therapy as Inpatient No Meds if any: Prescribed or Continued at Discharge Note: Overlap Therapy is Warfarin and Anticoagulant Meds if any: NOT Prescribed or Continued at Discharge
--- NOTE | 2016-11-20 22:23 | NUR ---
LATE ENTRY- PT AMBULATED AROUND UNIT WITH AX1 WITHOUT ANY DIFFICULTIES. PT TOLERATED NEW [id number], REPORTS HEADACHE WENT FROM 7-06/04 TO 4. ICE PACK GIVEN TO PATIENT FOR HEAD PER REQUEST. DENIES NAUSEA. WILL CONTIUE TO MONITOR.
[2016-11-20 22:38] VITALS: BP 98/60
[2016-11-20 22:39] VITALS: BP 98/60
[2016-11-21 06:48] VITALS: BP 92/58
--- NOTE | 2016-11-21 07:07 | PN- Housestaff ---
TERESA BROOKS MD 11/21/16 0706: Subjective Follow-up For: MS Exacerbation Fatigue Nausea Subjective: Patient seen and examined. She is seen lying flat in bed resting comfortably. She appears to be in no acute distress. She reports that the medicine she received yesterday evening took her migraine found to "3 out of 10". She feels much more comfortable today and it feels safe to be discharged. She does admit to feeling dizzy still with a mild nausea however admits that it is much more controlled than when she came in. Otherwise she denies any fever, chills, chest pain, shortness of breath, vomiting, diarrhea. No overnight events reported. Review of Systems Constitutional: Reports: see HPI. Objective Last 24 Hrs of Vital Signs/I&O Vital Signs Date Time Temp Pulse Resp B/P Pulse O2 O2 Flow FiO2 Ox Delivery Rate 11/21 0648 97.9 68 20 92/58 97 Room Air 11/20 2239 67 98/60 11/20 2238 98.0 67 19 98/60 98 Room Air 11/20 1346 97.2 67 18 99/60 99 Room Air 11/20 0829 64 90/52 Intake & Output 11/21 0800 11/21 0000 11/20 1600 Intake Total 800 620 Output Total Balance 800 620 Intake, Oral 800 620 Physical Exam General Appearance: Alert, Oriented X3, Cooperative, No Acute Distress Other Physical Findings: General -well-developed, well-nourished woman in no acute distress HEENT - NCAT, PERRL, EOMI, anicteric sclera Cardio - S1, S2 w/o murmurs/gallops/rubs Resp - CTA bilaterally w/o wheezing/rhochi/crackles GI - soft, nontender, nondistended, bowel sounds present Neuro - Awake and alert, CN II - XII grossly intact Extremities - no edema, pulses intact Current Medications: Current Medications Sig/Kasandra Start time Last Medication Dose Route Stop Time Status Admin Acetaminophen 650 MG Q6P PRN 11/18 1430 AC 11/18 PO 2051 Doxazosin Mesylate 4 MG DAILY 11/19 1000 AC 11/20 PO 0803 Enoxaparin Sodium 40 MG DAILY 11/18 1429 AC 11/20 SC 0806 Ketorolac 15 MG .STK-MED ONE 11/20 1519 DC Tromethamine IM 11/20 1520 Ketorolac 15 MG .STK-MED ONE 11/20 0755 DC Tromethamine IM 11/20 0756 Ketorolac 15 MG Q6P PRN 11/18 1915 AC 11/21 Tromethamine IV 0645 Lorazepam 0.5 MG TID PRN 11/20 1517 AC 11/20 PO 11/27 1516 1526 Lorazepam 0.5 MG DAILY 11/18 1545 DC 11/20 PO 11/25 1544 0802 Meclizine HCl 25 MG TID 11/18 2200 AC 11/20 PO 2206 Memantine 10 MG BID 11/18 2200 AC 11/20 PO 2206 Methylphenidate HCl 5 MG BID 11/18 2200 AC 11/20 PO 0802 Modafinil 200 MG DAILY 11/20 1000 AC 11/20 PO 0837 Morphine Sulfate 2 MG Q4P PRN 11/18 1430 AC 11/19 IV 2143 Omeprazole 20 MG DAILY AC 11/19 0700 AC 11/21 PO 0645 Propranolol HCl 60 MG DAILY 11/20 1000 AC PO Sodium Chloride 2 SPRAY Q4P PRN 11/20 1345 AC COLT Sumatriptan Succinate 25 MG DAILY NEEDED PRN 11/20 1545 AC 11/20 PO 1800 Topiramate 50 MG TID 11/20 1600 AC 11/20 PO 1525 Topiramate 25 MG TID 11/19 2200 WA 11/20 PO 0803 Trimethobenzamide HCl 200 MG 4 TIMES/DAY PRN 11/19 1700 AC 11/20 IM 0816 Zolpidem Tartrate 10 MG .[BED] 11/18 1545 AC 11/20 PO 2206 Last 24 Hrs of Lab/Darrin Results Last 24 Hrs of Labs/Mics: Laboratory Tests 11/20/16 0744: Anion Gap 8, Estimated GFR > 60, BUN/Creatinine Ratio 18.6, CBC w Diff NO MAN DIFF REQ, RBC 3.37 L, MCV 91.3, MCH 31.3 H, RDW 13.7, MPV 8.2, Gran % 89.1 H, Lymphocytes % 3.4 L, Monocytes % 7.4, Eosinophils % 0.1, Basophils % 0 L, Absolute Granulocytes 11.2 H, Absolute Lymphocytes 0.4 L, Absolute Monocytes 0.9 H, Absolute Eosinophils 0, Absolute Basophils 0, PUBS MCHC 34.3 Assessment/Plan Assessment: Patient reports improvement of her migraine after taking Imitrex last night, in addition to the Toradol/morphine/propranolol/Topamax regimen she was previously on in the hospital. Topamax was titrated up to 50 mg 3 times a day yesterday for which she tolerated well. Given her history of recent multiple sclerosis flare and high dose steroids, in addition to being on Gileniya it was thought that alternative diagnoses such as occult FIELD EXAMINER infection should be ruled out. A lumbar puncture was obtained and sent for basic panels and fungal culture, cryptococcal antigen, and oligoclonal bands. She is to be discharged home today with prescription of meclizine, Topamax, Imitrex with instruction to follow-up with her neurologist Dr. Rich after discharge. History of migraine/nausea: Patient has a history of migraines for which she has been maintained on Fioricet , propranolol, and Topamax that have offered her relief in the past. She reports a baseline headache that has been present since September. -Topamax 50 mg 3 times a day -Propranolol 60 mg by mouth daily -Meclizine 25 mg by mouth 3 times a day -Tigan 200 mg IM 4 times a day as needed for nausea -Follow-up MRI/MRA head -Neurology consult Relapsing/remitting multiple sclerosis: Patient recently treated with a course of high-dose steroids for an acute MS exacerbation on 11/13/16-11/15/16. Patient of Dr. Rich. -Provigil 200 mg by mouth daily -Adderral 10mg PO Daily converted to Ritalin 5mg PO BID -Memantine 10 mg by mouth twice a day -Ambien 10 mg by mouth daily at bedtime Pain plan: -Acetaminophen 650 mg by mouth every 6 hours as seen for pain 1-3 -Toradol 15 mg IV every 6 hours as needed for pain 4-6 -Morphine 2 mg IV every 4 hours as needed for pain 7-10 Diet-regular diet DVT prophylaxis-Lovenox CODE STATUS-full code Problem List: 1. Multiple sclerosis 2. Vertigo Pain Ratin Pain Location: Head Pain Goal: Pain 4 or less Pain Plan: As noted in plan Tomorrow's Labs & Rationales: None Consulting Request: Consulting Specialty: Neurology BECKY SINGH MD 11/21/16 4753: Attending MD Review Statement Attending Statement Attending MD Statement: examined this patient, discuss w/resident/PA/DOG HANDLER, agreed w/resident/PA/DOG HANDLER, reviewed EMR data (avail) Attending Assessment/Plan: 45F PMH relapsing MS, chronic migraines admitted for headache and vertigo. Headache 6/10 and mildly improved. Vertigo improved when head is tilted towards the left. Symptoms improved with Imitrex. Topamax dose increased. Patient underwent LP today for concern of infectious symptoms causing headaches as patient is immunosuppressed. LP showed zero WBC, negative Cryptococcal antigen, and negative gram stain. Low suspicion for meningoencephalitis at this time. Patient is stable for discharge home on all home medications, increased dose of Topamax, and Imitrex PRN with neurology follow up.
[2016-11-21] MEDS ORDERED: MECLIZINE HCL25 MG PO (07:32)
[2016-11-21] MEDS ORDERED: TOPAMAX50 M1 PO (07:32)
[2016-11-21] MEDS ORDERED: SUMATRIPTAN SUC25 M1 PO (07:32)
--- NOTE | 2016-11-21 12:02 | NUR ---
10:30- NOTIFIED DR. NELSON AND DR. SINGH INDERAL 60MG HELD FOR LOW B/P AND CARDURA 4MG REFUSED BY PT.
[2016-11-21 14:19] VITALS: BP 110/62
--- NOTE | 2016-11-21 14:35 | NUR ---
1230- DR. WOODS AND DR. NELSON PERFORMED LUMBAR PUNCTURE WITH CSF SPECIMENS SENT TO LAB. PER MDS, PT SHOULD REMAIN FLAT FOR ONE HOUR AND CAN RESUME SITTING UP AND WALKING PER BASELINE AFTER ONE HOUR. VSS. PT TO BE DISCHARGED THIS AFTERNOON PER DR. WOODS.
--- NOTE | 2016-11-21 15:42 | NUR ---
1230- PER JEANETTE SOARES TO RECEIVE FLU VACCINE
== END 2016-11-21 17:30 | DRG 103 ==
LOC: ENRESERVTM → ENRESERVDT → ERH 09:33 → ERHI 13:09 → 2NA 13:09 → ERHI 11-19 07:38 → 2NA 11-19 11:12
PROVIDERS: Internal Medicine Interventional Cardiology; Student in an Organized Health Care Education/Training Program; ADMIT Internal Medicine
PROC: 009U3ZX Drainage of Spinal Canal, Percutaneous Approach, Diagnostic (ICD-10-PCS; principal; 2016-11-21)
DX: G43.909 Migraine, unspecified, not intractable, without status migrainosus (principal); G35 Multiple sclerosis
CPT/HCPCS: 2NAP; 70552; 70555; 87070; 87205; 87801; ERO; 70553; 81001; 82436; 88305; 96365; 96372; 96375; 97112-GO; 97116-GO; 97161-GP; A9579; J1040; J1650; J1885; J2405; J2765; J3101; J3250; J3490; J7060; Q2036